=== PATIENT | female | born 1945 | race Caucasian/White ===

== ENCOUNTER → 2018-07-01 | Outpatient (CLI) | payer MEDICARE ==
--- NOTE | 2018-07-01 12:08 | Diagnostic Imaging Report ---
PROCEDURE: MR imaging of the brain without contrast. TECHNIQUE: Multiplanar, multisequence MR imaging of the brain was performed without contrast. INDICATION: Memory loss. COMPARISON: No prior studies are available for comparison. FINDINGS: The ventricles and sulci are appropriate for the patient's age. Moderate periventricular white matter changes are noted consistent with chronic microvascular ischemia. No acute intra-axial or extra-axial hemorrhage is seen. No diffusion restriction is identified to suggest acute ischemia. The normal expected flow-voids within the carotid siphons are seen. The corpus callosum is unremarkable. The sella and parasellar structures are unremarkable. IMPRESSION: Periventricular white matter changes consistent with chronic microvascular ischemia. The study is otherwise unremarkable. Dictated by: Dictated on workstation # [id number]
--- NOTE | 2018-07-01 19:52 | Diagnostic Imaging Report ---
INDICATION: Routine screening. COMPARISON: No prior mammograms are available for comparison. TECHNIQUE: 2D and 3D bilateral screening mammography was performed with computer-aided detection (CAD) system. FINDINGS: Scattered fibroglandular densities are identified bilaterally. There is a slightly irregular nodular density identified in the right breast projected just superior to the nipple line on the MLO view, approximately 7 cm from the nipple. No definite correlate on the CC view is seen. This is best seen on tomographic slice 29. Additional views are recommended. Left breast is unremarkable. There are scattered benign calcifications seen. No malignant-appearing microcalcifications are identified. IMPRESSION: Right breast density. Additional views including spot compression and 90 degree lateral views are recommended. ACR BI-RADS Category 0: Incomplete. (Needs additional imaging evaluation). Result letter will be mailed to the patient. Note: At least 10% of breast cancer is not imaged by mammography. Dictated by: Dictated on workstation # [id number]
== END ==
LOC: RAD 10:18
PROVIDERS: ATTEND Nurse Practitioner Family
DX: Z12.31 Encounter for screening mammogram for malignant neoplasm of breast (principal); R92.8 Other abnormal and inconclusive findings on diagnostic imaging of breast; R41.3 Other amnesia; R90.82 White matter disease, unspecified
CPT/HCPCS: 70551; 77067

== ENCOUNTER → 2018-07-28 | Outpatient (CLI) | payer MEDICARE ==
--- NOTE | 2018-07-28 14:41 | Diagnostic Imaging Report ---
INDICATION: Abnormal screening mammogram. Comparison made with prior examination from 07/01/18. Spot compression views and true lateral view of the right breast were obtained. FINDINGS: The previously described density appears to be superimposed fibroglandular tissue. There is no discrete mass, spiculated lesion or suspicious calcification identified. IMPRESSION: Category 2 benign ACR BI-RADS Category 2: Benign findings. Result letter will be mailed to the patient. Note: At least 10% of breast cancer is not imaged by mammography. Dictated by: Dictated on workstation # [id number]
== END ==
LOC: RAD 13:14
PROVIDERS: ATTEND Nurse Practitioner Family
DX: R92.8 Other abnormal and inconclusive findings on diagnostic imaging of breast (principal); N63.10 Unspecified lump in the right breast, unspecified quadrant

== ENCOUNTER 2019-11-06 16:19 | Emergency (ER) | payer MEDICARE ==
[~2019-11-06] VITALS: Ht 162.6 cm; Wt 88.6 kg
[2019-11-06 17:45] LABS: BILIRUBIN,URINE NEGATIVE (NEGATIVE); CLARITY,URINE CLEAR; COLOR,URINE YELLOW; GLUCOSE, URINE (UA) NEGATIVE (NEGATIVE); KETONES,URINE NEGATIVE (NEGATIVE); LEUKOCYTE ESTERASE ,URINE TRACE (NEGATIVE); NITRITE,URINE NEGATIVE (NEGATIVE); PROTEIN,URINE NEGATIVE (NEGATIVE)
[2019-11-06 17:47] LABS: AMORPHOUS SEDIMENT,UR MOD AMOR URATES /LPF; BACTERIA,URINE TRACE /HPF; RBC,URINE 0-2 /HPF
[2019-11-06] MEDS ORDERED: PHEN-639 PO (17:54)
[2019-11-06] MEDS ORDERED: CEFD300C3 PO (17:54)
--- NOTE | 2019-11-06 17:55 | ED GU-Female ---
General Chief Complaint: Back Problems Stated Complaint: LOWER BACK PAIN Nursing Triage Note: Pt amb to triage with c/o Rt lower back discomfort for approx x2wks. Pt reports she believes discomfort to be associated with sciatica. Pt denies fever, chills, or urinary symptoms. Pt reports hx chronic UTI's. Pt denies injury. Pt states, "I don't know why she brought me here." A&OX4. Home health aide @ side. Nursing Sepsis Screen: No Definite Risk Source: patient, caregiver Exam Limitations: no limitations History of Present Illness Date Seen by Provider: Nov 06, 2019 Time Seen by Provider: 17:33 Initial Comments 74-year-old female patient presents with complaints of right low back pain for approximately 2 weeks. Patient states she is unsure if she has sciatica or a urinary tract infection. Patient does have a history of chronic UTIs. Denies known injury. Denies radiating pain, numbness, tingling, weakness. Home health aide is with the patient and states patient has been forgetting to take her medications recently. Patient states she was placed on a medication to help with memory loss, but states she did not feel that this was helping and stopped the medication on her own. Patient also states she does not want to go to Dr. Rivas's office to be seen and did not want to come to the emergency department tonight. She states she did finally agree to coming to the ER for evaluation. Home health aide also reports patient being more irritable then usual and patient states "I probably have been a little sharp with people lately." Patient reports taking tylenol prior to coming to the ED. Timing/Duration: other (2 wk onset) Severity/Quality: aching Location: other (right low back) Radiation: none Activities at Onset: none Allergies and Home Medications Allergies Coded Allergies: No Known Drug Allergies (Unverified , 11/06/19) Home Medications Cefdinir 300 Mg Capsule, 300 MG PO BID Prescribed by: MEHNAZ LEZAMA on 11/06/191753 Phenazopyridine HCl 100 Mg Tablet, 100 MG PO BID Prescribed by: MEHNAZ LEZAMA on 11/06/191753 Patient Home Medication List Home Medication List Reviewed: Yes Review of Systems Review of Systems Constitutional: No chills, No dizziness, No fever EENTM: No ear pain, No nose congestion, No throat pain Respiratory: No cough, No phlegm, No short of breath Cardiovascular: No chest pain, No edema, No palpitations Gastrointestinal: No abdominal pain, No constipation, No diarrhea, No melena, No nausea, No vomiting, No other (denies bowel incontinence) Genitourinary: denies burning, denies dysuria, denies frequency, denies flank pain, denies hematuria, denies incontinence, denies pain Musculoskeletal: back pain Skin: No change in color, No rash Psychiatric/Neurological: See HPI; Denies Headache, Denies Numbness, Denies Paresthesia, Denies Tingling, Denies Weakness Endocrine: No Symptoms Reported All Other Systemes Reviewed Negative Unless Noted: Yes (Negative excepted noted.) Past [id number] Hx Past Med/Social Hx: Reviewed Nursing Past Med/Soc Hx Patient Social History Alcohol Use: Denies Use Recreational Drug Use: No Smoking Status: Never a Smoker 2nd Hand Smoke Exposure: No Recent Foreign Travel: No Contact w/Someone Who Travel: No Recent Infectious Disease Expo: No Recent Hopitalizations: No Seasonal Allergies Seasonal Allergies: No Past Medical History Surgeries: No (Pt denies medical hx. ) Respiratory: No Cardiac: No Neurological: Yes Dementia Genitourinary: No Gastrointestinal: No Musculoskeletal: No Endocrine: No HEENT: No Cancer: No Integumentary: No Family Medical History Reviewed Nursing Family Hx No Pertinent Family Hx Physical Exam Vital Signs Vital Signs - First Documented 11/06/19 16:32 Temp 36.5 Pulse 62 Resp 17 B/P (MAP) 147/92 (110) Pulse Ox 99 O2 Delivery Room Air Capillary Refill : Less Than 3 Seconds Height, Weight, BMI Height: '" Weight: lbs. oz. 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, no motor/sensory deficits (moving all 4 extremities without difficulty.), alert, normal mood/affect (pleasant, cooperative, and appropriate.), oriented x 3; No aphasia, No EOM palsy, No facial droop Skin: normal color, warm/dry Progress/Results/Core Measures Suspected Sepsis Recent Fever Within 48 Hours: No Infection Criteria Present: Suspected New Infection New/Unexplained Altered Menta: No Sepsis Screen: No Definite Risk SIRS Temperature: Pulse: 62 Respiratory Rate: 17 Blood Pressure 147 /92 Mean: 110 Results/Orders Lab Results Laboratory Tests Test 11/06/19 16:36 Range/Units Urine Color YELLOW Urine Clarity CLEAR Urine pH 6.0 5-9 Urine Specific [place] >=1.030 1.016-1.022 Urine Protein NEGATIVE NEGATIVE Urine Glucose (UA) NEGATIVE NEGATIVE Urine Ketones NEGATIVE NEGATIVE Urine Nitrite NEGATIVE NEGATIVE Urine Bilirubin NEGATIVE NEGATIVE Urine Urobilinogen 0.2 < = 1.0 MG/DL Urine Leukocyte Esterase TRACE NEGATIVE Urine RBC (Auto) NEGATIVE NEGATIVE Urine RBC 0-2 /HPF Urine WBC 2-5 /HPF Urine Crystals PRESENT H /LPF Urine Amorphous Sediment MOD CAYLA URATES H /LPF Urine Bacteria TRACE /HPF Urine Casts NONE /LPF Urine Mucus LARGE H /LPF Urine Culture Indicated NO My Orders Orders - MEHNAZ LEZAMA Urinalysis (11/06/19 17:09) Urine Culture (11/06/19 17:50) Vital Signs/I&O 11/06/19 11/06/19 16:32 18:03 Temp 36.5 36.5 Pulse 62 68 Resp 17 16 B/P (MAP) 147/92 (110) 147/92 (110) Pulse Ox 99 99 O2 Delivery Room Air Room Air Capillary Refill : Less Than 3 Seconds Blood Pressure Mean: 110 Departure Communication (Admissions) patient seen and evaluated. urinalysis obtained. laboratory findings discussed with the patient. plan for dsch to home with a prescription for antibiotics. Patient denies need for pain medication in the emergency department. Patient instructed to F/u as an outpatient with Dr. Rivas Saturday or Saturday. Patient verbalizes understanding and agrees with the treatment plan. ED visit uneventful. Patient case discussed with Dr. Zelaya, he agrees with the plan of care. Impression Primary Impression: Urinary tract infection Qualified Codes: N30.00 - Acute cystitis without hematuria Disposition: HOME, SELF-CARE Condition: Improved Departure-Patient Inst. Decision time for Depature: 17:53 Referrals: EZRA RIVAS MD (PCP/Family) Primary Care Physician Patient Instructions: Urinary Tract Infection, Adult (DC) Add. Discharge Instructions: All discharge instructions reviewed with patient and/or family. Voiced understanding. Medications as instructed. Continue usual home medications. Tylenol extra strength [id number] as directed for pain. Follow-up with Dr. Rivas early this week for recheck, call Saturday for appointment time. Return to the emergency department for worsened symptoms or any other concerns. Scripts Phenazopyridine HCl (Pyridium) 100 Mg Tablet 100 MG PO BID, #14 TAB 0 Refills Prov: MEHNAZ LEZAMA 11/06/19 Cefdinir (Cefdinir) 300 Mg Capsule 300 MG PO BID, #14 CAP 0 Refills Prov: MEHNAZ LEZAMA 11/06/19 MEHNAZ LEZAMA Nov 06, 2019 17:55
[2019-11-06 18:03] VITALS: BP 147/92
== END 2019-11-06 18:03 | disposition home or self-care (01) ==
LOC: EDUNIT# 16:19 → ER 16:20
DX: N39.0 Urinary tract infection, site not specified (principal); F03.90 Unspecified dementia, unspecified severity, without behavioral disturbance, psychotic disturbance, mood disturbance, and anxiety
CPT/HCPCS: 81000; 87088; 99282